=== PATIENT | male | born 1960 | race Caucasian/White ===

== ENCOUNTER → 2017-11-02 15:38 | Outpatient (CLI) | payer MEDICAID, SELFPAY ==
--- NOTE | 2017-11-02 15:53 | DI.REPORT_ITS ---
SYMPTOM/DIAGNOSIS: PAIN RIGHT KNEE: Three views. Comparison is made with 01/14/10. There is chondrocalcinosis present. Sridevi articular spurring is seen in the lateral femoral tibial joint space. The bones are intact and normally mineralized. The soft tissues are unremarkable. IMPRESSION: Mild degenerative changes of the knee.
== END ==
PROVIDERS: PCP General Practice; Visit Provider General Practice
DX: M25.561 Pain in right knee (principal); M17.11 Unilateral primary osteoarthritis, right knee
CPT/HCPCS: 73562

== ENCOUNTER 2019-02-21 15:20 | Outpatient (CLI) | payer MEDICAID, SELFPAY ==
--- NOTE | 2019-02-21 15:38 | DI.RAD_ITS ---
EXAM: XR SHOULDER RT COMPLETE 2+V INDICATION: PAIN X 2 WKS. COMPARISON: None TECHNIQUE: 2D digital imaging was performed. FINDINGS: There is deformity at the proximal aspect of the clavicle likely an old healed fracture. There is mi ld spurring at the AC joint and undersurface of the acromion. The humeral head appears normally posi tioned. The glenohumeral joint space is well maintained. There is mild spurring at the glenoid. No tendon or joint space calcifications are seen. IMPRESSION: Mild degenerative changes.
== END 2019-02-21 15:40 ==
PROVIDERS: PCP General Practice; Visit Provider General Practice
DX: M25.511 Pain in right shoulder (principal); M19.011 Primary osteoarthritis, right shoulder; Z87.81 Personal history of (healed) traumatic fracture
CPT/HCPCS: 73030

== ENCOUNTER 2019-03-30 01:26 | Outpatient (CLI) | payer MEDICAID, SELFPAY ==
--- NOTE | 2019-03-30 14:02 | DI.MRI_ITS ---
EXAM: MR UPPER JOINT RT WO CLINICAL HISTORY: Right shoulder weakness and pain evaluate rotator cuff and biceps,M75.101,ROTATOR CUFF TEAR, M75.51, BURSITIS TECHNIQUE: Multiplanar multisequence MRI was performed. COMPARISON: XR SHOULDER RT COMPLETE 2+V from 02/21/2019 FINDINGS: Supraspinatus tendon: There is a moderate size, full-thickness tear of the supraspinatus tendon anter iorly at its insertion onto the greater tuberosity. There is tendinosis of the supraspinatus tendon also noted. Infraspinatus tendon: Intact. Teres minor tendon: Intact. Subscapularis tendon: Mild thickening and intermediate signal is noted consistent with tendinosis. Biceps tendon: Intermediate signal is seen in the biceps tendon proximally suggesting tendinosis. Glenoid labrum: Unremarkable on this noncontrast examination. Glenohumeral joint: Articular cartilage is unremarkable. Bones: Degenerative changes are seen at the acromioclavicular joint. No evidence of an occult fractu re or avascular necrosis. Soft tissues: Fluid is seen in the subacromial, subdeltoid and subcoracoid bursa. There is a joint e ffusion. No soft tissue suha is appreciated. Coracoclavicular ligament: Intact. IMPRESSION: Moderate-sized, full-thickness tear of the supraspinatus tendon. Tendinosis of the subscapularis and biceps tendon Degenerative changes at the acromioclavicular joint.
== END 2019-03-30 01:46 ==
PROVIDERS: PCP General Practice; Visit Provider Student in an Organized Health Care Education/Training Program
DX: M25.511 Pain in right shoulder (principal); M75.101 Unspecified rotator cuff tear or rupture of right shoulder, not specified as traumatic; M75.21 Bicipital tendinitis, right shoulder; M75.51 Bursitis of right shoulder; M75.41 Impingement syndrome of right shoulder; M19.011 Primary osteoarthritis, right shoulder
CPT/HCPCS: 73221

== ENCOUNTER 2019-04-21 11:13 | Day surgery (SDC) | payer MEDICAID, SELFPAY ==
[2019-04-21 11:29] VITALS: BP 144/107; PULSE 72; RESP 16; TEMP 37.1; O2SAT 96
[2019-04-21] MEDS: Lactated Ringers 1,000 ML 100 ML IV (12:09)
[2019-04-21] MEDS: CLINDAMYCIN 900 MG/50 ML BAG 50 MG IVPB (12:45)
[2019-04-21] MEDS: Bupivacaine 0.25% Pres-Free 30 ML VIAL (14:00)
[2019-04-21] MEDS: EPINEPHrine 30 MG/30 ML VIAL (15:06)
[2019-04-21 15:51] VITALS: BP 125/71; PULSE 87; RESP 16; TEMP 37.1; O2SAT 97
--- NOTE | 2019-04-21 15:54 | PDOC.DSDIS_ITS ---
Discharge Plan Disposition Patient Disposition: HOME Condition: Stable Discharge Details Reason For Visit: Right shoulder surgery Attending Provider: Nils Barber Primary Care Provider: None,None Home Meds and New Rx's Prescriptions: New naproxen 250 mg tablet 250 - 500 mg PO BID PRN (Reason: pain, moderate) Qty: 60 RF: 0 aspirin 81 mg tablet,delayed release (DR/EC) 81 mg PO DAILY 14 Days Qty: 14 RF: 0 oxycodone 5 mg tablet 5 - 10 mg PO Q4H PRN (Reason: moderate to severe pain) Qty: 22 RF: 0 Continued acetaminophen [Acetaminophen Extra Strength] 500 mg Tablet 1,000 mg PO PRN PRNRF: 0 Excedrin Extra Strength 250-250-65 mg Tablet 1 tab PO ONCE RF: 0 Discontinued No RX or OTC meds RF: 0 ibuprofen 200 mg Tablet 600 mg PO PRN PRNRF: 0 Discharge Instructions Additional Instructions: Surgery: Shoulder arthroscopy with rotator cuff repair and biceps tenodesis Activity: You should keep your arm at your side in a neutral position at all times except for physical therapy. Do not try to lift or raise your arm using your own muscles. You should use the sling whenever you are out of the house. You may have to adjust the abduction pillow or remove it for comfort. At home it is best to remove the sling and rest the arm on a pillow at your side or support the operative side with your other hand. You may allow the arm to dangle at your side. A physical therapy prescription will be provided separately today. Prescriptions: Aspirin 81 mg take 1 daily to prevent a blood clot for 2 weeks Naproxen 250 mg take 1-2 every 12 hours with a meal as needed for moderate pain Oxycodone 5 mg take 1-2 every 4-6 hours as needed for severe pain You may use uabo-zor-hihdafe Tylenol (acetaminophen) as needed for mild pain. These pain medications may be taken all at once or in different combinations as needed. Also, recommend Colace (docusate) as a stool softener as surgery and pain medicine cause constipation. Dressings: Leave dressing in place for 2-3 days. May then remove and leave open to air or cover incisions with Band-Aids. May shower after 5 days. Follow-up: 10-[address] Barber Please call the office during business hours with any questions or concerns. Let us know right away if you develop any redness, drainage, fevers, chest pain, or trouble breathing. Do not drink alcohol or drive for at least 24 hours after anesthesia. Referrals: Nils Barber MD [ [facility] STAFF PHYSICIAN] - Discharge Orders Discharge Orders: Discharge Order (Routine); Ordered 04/21/19 Ordered By: Nils Barber DS: Diagnosis Discharge Diagnosis (1) Bursitis of right shoulder: Status: Acute (2) Impingement syndrome of right shoulder: Status: Acute (3) Rotator cuff tear, right: Status: Acute (4) Tendonitis of long head of biceps brachii of right shoulder: Status: Acute
[2019-04-21 16:00] VITALS: BP 132/82; PULSE 88; RESP 23; TEMP 37.1; O2SAT 96
[2019-04-21 16:05] VITALS: BP 109/61; PULSE 84; RESP 17; TEMP 37.1; O2SAT 97
--- NOTE | 2019-04-21 16:14 | W.PM.OP ---
Date of service: 04/21/19 Time of Service: 15:55 Operative Note Operative Note DATE OF PROCEDURE: 04/21/19 PRE-OP DIAGNOSIS: Right: 1. Rotator cuff tear 2. LHB tendinopathy 3. Bursitis 4. Impingement POST-OP DIAGNOSIS: same PROCEDURE: Right: 1. Extensive debridement, CPT# 29370. This involved using arthroscopic hand instruments, power instruments, and radiofrequency instruments to debride areas of labral tearing, synovitis, and chondromalacia within the glenohumeral joint anteriorly and posteriorly. 2. Open biceps tenodesis, CPT# 03243. This involved reattaching the long head of the biceps tendon to the proximal humerus in the sub-pectoral area of the bicipital groove at the correct tension. 3. Subacromial decompression with partial acromioplasty, CPT# 01664. This involved using arthroscopic power instruments and a radiofrequency wand to complete a bursectomy and remove bone spurs on the undersurface of the acromion. 4. Rotator cuff repair, CPT# 27433. This involved repair of the supraspinatus using anchors and sutures to reattach the rotator cuff back to the footprint of the greater tuberosity. The environmental services assistant was medically required in order to help assist in techniques above, which require positioning the arm, holding the arthroscope, and manipulating 2 to 4 instruments and sutures at the same time. This cannot be done without the help of an experienced environmental services assistant. SURGEON: Nils Barber FOOD SERVICES DIRECTOR: Mary Jo Stanton ANESTHESIA: GETA and regional PATHOLOGY: none sent Patient was transported to: PACU Patient's condition: stable Implants: Arthrex: 4.75mm SwiveLocks x 5 and Unicortical Proximal Biceps Tenodesis Button Indications: The patient was diagnosed with the above conditions and appropriately indicated for surgical intervention. Please see complete medical record for details. Findings: Exam under anesthesia: 15 degrees less terminal forward flexion on the right side that was nearly symmetrical after gentle manipulation. Otherwise, symmetric internal rotation, external rotation, and stable shoulder. Glenohumeral joint: Significant synovitis anteriorly and posteriorly. Mild chondromalacia about a swollen and inflamed long head of the biceps tendon. Mild anterior and superior labral fraying. Intact subscapularis. Subacromial space: Significant bursitis. Moderate subacromial bone spur. Full-thickness supraspinatus tear. Procedure Description: The patient was taken to the operating room and transferred to the operating room table. General anesthesia was induced. While under anesthesia, bilateral shoulders were examined. The patient was positioned in the beachchair position. All bony prominences were well-padded. Preoperative antibiotics were administered. The shoulder was prepped and draped in the usual sterile fashion. The correct patient, procedure, and side of the procedure were all verified prior to incision. Starting through the posterior portal a standard complete diagnostic arthroscopy was performed of the glenohumeral joint including inspection of the long head of the biceps, anterior and superior labrum, subscapularis tendon, supraspinatus and infraspinatus tendons, and axillary recess. The glenoid and humeral head cartilage as well as the posterior labrum were inspected from an anterior viewing portal. Significant findings noted above. The biceps tendon was tenotomized from the labrum using arthroscopic scissors. 10 cc of 0.5% bupivacaine with epinephrine was infiltrated about a 2 to 3 cm longitudinal incision at the inferior margin of the pectoralis major localized over the long head of the biceps tendon. Blunt and sharp dissection were used to expose the tendon in the bicipital groove. The tendon was brought out of the wound and kept off the skin on top of a blue towel. The correct location for sub-pectoral fixation was localized, prepped with a rasp, and then drilled with a 3.2 mm drill pin in a unicortical fashion. Using a fiber loop suture the tendon was prepped from the musculotendinous junction a few centimeters proximal. The excess tendon was amputated. The free suture ends were then passed through the unicortical button implant. The drill pin was removed and the implant was placed into the humeral intramedullary canal. The button was flipped and the sutures were tensioned bringing the tendon down to bone. Tension and fixation were then tested and found to be appropriate. A free needle was used to pass suture through the tendon and tied and the sutures were tied on top of the tendon. The wound was copiously irrigated with normal saline. Subcutaneous tissue was closed using 3-0 Monocryl in a buried interrupted fashion. Skin was closed using 3-0 Monocryl in a buried subcuticular running fashion. Skin glue was applied over the incision. Mastisol was applied about the incision. The incision was covered with Telfa, gauze, and covered with a Tegaderm dressing. Starting through the posterior portal, the arthroscope was directed into the subacromial space. A lateral 50 yard line lateral portal was created. A combination of power instruments and a radiofrequency ablator were used to debride bursitis anteriorly, posteriorly, and laterally as well as expose and smooth bone spurring on the undersurface of the acromion. The coracoacromial ligament was partially released. The bursectomy was completed viewing laterally and working from posteriorly and the rotator cuff was thoroughly inspected with findings noted above. Cannulas were inserted at the superior anterior lateral and posterior anterior lateral margins of the acromion as well as at the lateral 50 yard line portal. The rotator cuff tear was inspected and debrided of frayed tissue at the margins exposing a full-thickness moderately sized supraspinatus tear. The greater tuberosity cleared of fibrous tissue over the footprint and the bursectomy was extended laterally. A punch was used to localize placement the first medial row anchor starting anteriorly that was loaded with fiber tape. A suture passer was as well as a tissue grasper to pass these fiber tapes through all layers of the tendon at the appropriate level. Process was repeated for the second posterior medial row anchor. Next, a self retrieving suture passer was used to pass fiber link sutures in cinch mode anterior to the first medial row anchor, between the anchors, and posterior to the second medial row anchor. Rotator cuff tear was provisionally reduced through these FiberLink sutures and secured to a middle row suture anchor. Lastly, a fiber link from the anterior and posterior anchors was brought to a lateral row anterior anchor and this process repeated for lateral posterior anchor achieving compression over the reduced rotator cuff repair. The repair was inspected through shoulder range of motion and found to be stable with secure fixation. The shoulder was drained of arthroscopic fluid. All portal sites were copiously irrigated. These incisions were closed using 3-0 Monocryl in a buried fashion, covered with Mastisol, Steri-Strips, Xeroform, dry gauze, and ABDs. The dressings were covered and secured with Medipore tape. The operative extremity was placed into a sling for immobilization. The patient awoke from anesthesia without complication and was transferred to the recovery room in a stable condition.
[2019-04-21 16:20] VITALS: BP 112/68; PULSE 85; RESP 19; TEMP 36.7; O2SAT 98
[2019-04-21 17:44] VITALS: BP 121/78; PULSE 89; RESP 17; TEMP 36.4; O2SAT 94
== END 2019-04-21 17:50 | disposition home or self-care (01) ==
PROVIDERS: Visit Provider Student in an Organized Health Care Education/Training Program
PROC: (CPT 29827; principal; 2019-04-21 13:00)
PROC: (CPT 23430; 2019-04-21 13:00)
DX: S46.011A Strain of muscle(s) and tendon(s) of the rotator cuff of right shoulder, initial encounter (principal); S43.431A Superior glenoid labrum lesion of right shoulder, initial encounter; M65.811 Other synovitis and tenosynovitis, right shoulder; M94.211 Chondromalacia, right shoulder; M75.51 Bursitis of right shoulder; G89.18 Other acute postprocedural pain; X58.XXXA Exposure to other specified factors, initial encounter; Y99.0 Civilian activity done for income or pay
CPT/HCPCS: 29827; 29823; 23430; 29826; L3670; J1100; J1885; J2001; J2250; J2370; J2405; J2704

== ENCOUNTER 2021-05-09 10:47 | Emergency (ER) | payer MEDICAID, SELFPAY ==
[2021-05-09 10:51] VITALS: BP 177/108; PULSE 77; RESP 18; O2SAT 97
--- NOTE | 2021-05-09 11:00 | DI.RAD_ITS ---
Exam(s) XR KNEE LT 3V AP,LAT,NESSA EXAM: XR KNEE LT 3V AP,LAT,NESSA CLINICAL HISTORY: lateral knee trauma/pain. TECHNIQUE: 2D digital imaging was performed. COMPARISON: CR RIGHT KNEE COMPLETE from 01/14/2010 CR RIGHT KNEE 3 VIEWS from 11/02/2017 FINDINGS: Intramedullary sarai distal femur. No acute fracture. No joint effusion visible. Mild degenerative c hanges. IMPRESSION: No acute abnormality. DATA REPOSITORY: RADIATION DOSE DELIVERED:
--- NOTE | 2021-05-09 11:32 | ED.GENADUL_ITS ---
Discharge Plan Disposition Patient Disposition: HOME Condition: Stable Discharge Details Clinical Impression: Left knee sprain Primary Care Provider: None,None ED Provider: Efrem Balderas Home Meds and New Rx's Prescriptions: Continued acetaminophen [Acetaminophen Extra Strength] 500 mg Tablet 1,000 mg PO PRN PRN0RF Excedrin Extra Strength 250-250-65 mg Tablet 1 tab PO ONCE 0RF naproxen 250 mg tablet 250 - 500 mg PO BID PRN (Reason: pain, moderate) Qty: 60 0RF Discharge Instructions Instructions: Knee Sprain (ED) Additional Instructions: You may continue to take [id number] acetaminophen or naproxen as needed for pain and discomfort. Please use the crutches over the next 3 to 4 days and slowly advance your activity as tolerated. It is recommended that you wear the knee brace for the next 1 to 2 weeks but you may take this off in the evenings or when at rest. You have been placed upon the orthopedic follow-up list for reassessment but feel free to return to the emergency department for any new or significant worsening symptoms. Referrals: [facility] [Provider Group] (As directed by their office. If you do not hear from them in the next 2 to 3 days please call them for arrangement of appointment.) Medical Decision Making Patient presenting to the emergency department with chief complaint of left knee injury. He states that 60 pound dog was running at full speed and knocked him in the lateral aspect of the left knee causing instant pain and feeling of a popping sensation at time of injury. Patient has been unable to bear weight and extremely painful range of motion of left knee. Patient is able to fully extend and flex the knee and physical exam shows slight swelling and tenderness to lateral knee. Patient does have lateral discomfort with valgus testing otherwise unremarkable nondiagnostic exam. Suspect lateral knee sprain versus meniscus injury but given that patient is unable to bear weight will perform radiological imaging to rule out acute fracture. Patient took pain medication prior to arrival and states no need for further medication at this time. No acute findings noted on x-ray. Patient placed in a hinged knee brace and encouraged to perform conservative management with RICE and crutch use for the next couple days and then to increase use as tolerated. Given patient previous trauma to that extremity along with his pain will place patient on orthopedic follow-up list for reassessment and to ensure that he has appropriate improvement. Imaging Data Radiologic Study: Imaging: X-Ray Radiologist's impression: IMPRESSION: No acute abnormality HPI General Mode of arrival: ambulatory (On crutches) . Date/Time Provider Initiated Documentation: 05/09/21 10:59 . Limitations to Documentation: no limitations . Information obtained by: patient . History of Present Illness 60 year old M presents to the emergency department with the chief complaint of Left knee injury, described as moderate, with intensity rated at 8. Quality is described as aching and sharp, and is localized to the left and lower extremity. Patient reports no radiation. Patient started experiencing this hour(s) (2) and it has been constant. improves with Immobilization improves symptom(s), and Rest improves symptom(s), Movement worsens symptoms . Patient notes no other symptoms.. Patient did receive the following treatments prior to arrival, NSAID Related Data Home Medications Medication Instructions Recorded Confirmed acetaminophen 500 mg tablet 1,000 mg PO PRN PRN 04/18/19 05/09/21 (Acetaminophen Extra Strength) elgrpyj-aphpmaphusunk-ihzkawep 250 1 tab PO ONCE 04/21/19 05/09/21 mg-250 mg-65 mg tablet (Excedrin Extra Strength) naproxen 250 mg tablet 250 - 500 mg PO BID PRN #60 tab 04/21/19 05/09/21 Previous Rx's Medication Instructions Recorded naproxen 250 mg tablet 250 - 500 mg PO BID PRN #60 tab 04/21/19 Allergies Allergy/AdvReac Type Severity Reaction Status Date / Time Penicillins Allergy resp Verified 05/09/21 10:55 distress, facial swelling General Stated Complaint: Orthopedic HEBERT: 4 Review of Systems Cardiovascular Cardiovascular: Denies chest pain, Denies syncope and Denies dyspnea Respiratory Respiratory: Denies dyspnea Musculoskeletal Musculoskeletal: Reports as per HPI, Denies numbness and Denies tingling Integumentary/Breasts Skin/Breast: Denies rash, Denies sores and Denies wounds Neurologic Neurologic: Denies syncope, Denies numbness, Denies tingling and Reports paresthesias PFSH All Active Problems (Updated 05/09/21 @ 11:45 by Efrem Balderas NP) Left knee sprain (Acute) Umbilical hernia (Acute 06/28/14) Medical History (Updated 05/09/21 @ 11:45 by Efrem Balderas NP) Accident Cracked skull, fractured lumber spine, left femur, right shoulder and clavicle. Clavicle fracture, shaft Closed fracture skull vault with laceration and contusion-no coma Concussion Femur fracture Laceration of left buttock Patella fracture Shoulder fracture, right Surgical History femur nail H/O umbilical hernia repair Hx of arthroscopic knee surgery Pt unsure which side Social History Smoking/Tobacco Use Status: Never Smoking risk assessment performed?: Yes Alcohol Intake: current Alcohol Intake frequency: holidays/special occasions only Alcohol type: beer Drug use: Never Substance use type: does not use Current gender identity: male Do you feel safe at home: Yes Do you feel safe in your relationship?: Yes Additional Social history: not in current reationship Exam Const General: cooperative, no acute distress and not ill appearing Orientation: alert, awake and oriented x3 Resp Effort & Inspection: normal respiratory effort, able to speak in complete sentences and no respiratory distress Cardio Rate: regular rate Rhythm: regular rhythm Pulses: posterior tibial pulses present and dorsalis pedis present Skin General skin exam: no rashes or lesions noted Neuro General: patient alert, patient awake, patient oriented x3 and moves all extremities Extrem General: capillary refill normal and normal exam except as noted Left lower extremity: knee Details: tenderness Location: of the lateral joint line, swelling Location: of the distal upper leg Details: laterally, abnormal ROM Details: pain with active ROM Details: with extension and pain with passive ROM Details: with extension; Negative for able to extend lower leg actively and knee ligament exam abnormal Details: valgus stress test Details: pain noted; Negative for no abrasions, no lacerations, no ecchymosis and no deformity Course Vital Signs Vital signs: Vital Signs Pulse 77 05/09/21 10:51 Respiratory Rate 18 05/09/21 10:51 Blood Pressure 177/108 H 05/09/21 10:51 Pulse Oximetry 97 05/09/21 10:51 Pulse 77 05/09/21 10:51 Respiratory Rate 18 05/09/21 10:51 Respiratory Effort Non-Labored 05/09/21 10:56 Blood Pressure 177/108 H 05/09/21 10:51 Blood Pressure Position Sitting 05/09/21 10:51 Pulse Oximetry 97 05/09/21 10:51 Oxygen Delivery Method Room Air 05/09/21 10:51 Oxygen Flow Rate 0 05/09/21 10:51 Pain Level 8 05/09/21 10:58
== END 2021-05-09 12:11 | disposition home or self-care (01) ==
PROVIDERS: Emergency Provider Nurse Practitioner Family
DX: S83.8X2A Sprain of other specified parts of left knee, initial encounter (principal); W54.1XXA Struck by dog, initial encounter
CPT/HCPCS: 29505; 73562; 99283

== ENCOUNTER 2021-05-24 00:21 | Outpatient (CLI) | payer MEDICAID, SELFPAY ==
--- NOTE | 2021-05-24 06:15 | DI.MRI_ITS ---
Exam(s) MR LOWER JOINT LT WO EXAM: MR LOWER JOINT LT WO CLINICAL HISTORY: PAIN,lt knee sprain,acute traumatic internal derangement,s83.105a,s83.92xa TECHNIQUE: Multiplanar multisequence MRI was performed.. COMPARISON: No exams were available for comparison FINDINGS: MR examination of the knee was performed according to the usual protocol. There is a small knee joint effusion. There is an intramedullary sarai of the femur. 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 No other significant bony signal abnormality seen.. Medial tibiofemoral joint: The articular cartilage of the femur and tibia appears well maintained exc ept at femoral trochlea as noted above.. The meniscus and attachments appear intact. The medial col lateral ligament appears intact. No posteromedial corner injury seen. Lateral tibiofemoral joint: The articular cartilage of the femur and tibia appears well maintained. There is tear of the lateral meniscus which involves the body and posterior horn and extends into the anterior horn which is probably nondisplaced and complex in shape period. The lateral collateral li gament complex and posterolateral corner structures appear intact. There is a presumed small menisca l cyst projected posteriorly. Patellofemoral joint and extensor mechanism: The articular cartilage of the patellofemoral joint appe ars intact. The superior and inferior patellar fat pads show evidence of mild nonspecific edema. Th ere is increased signal anterior to the patellar tendon with mildly abnormal signal at the patellar t endon tibial attachment and a small fluid collection at the attachment as well. Please correlate for posttraumatic findings at this site.. The quadriceps tendon and patellar tendon appear intact with no evidence of a tear or significant jhonatan ma. The medial and lateral retinacula appear intact. Cruciate ligaments: Cruciate ligaments and attachments appear normal with no evidence of a tear. Tibiofibular joint: No specific abnormality involving the tibiofibular joint. Small fluid collection presumably represents a lateral meniscal cyst. IMPRESSION: Lateral meniscal tear, complex, nondisplaced. No other significant internal derangement. Additional minor findings as described above.. DATA REPOSITORY:
== END 2021-05-24 00:41 ==
PROVIDERS: Visit Provider Student in an Organized Health Care Education/Training Program
DX: M25.562 Pain in left knee; S83.272A Complex tear of lateral meniscus, current injury, left knee, initial encounter; M25.462 Effusion, left knee; M93.262 Osteochondritis dissecans, left knee; S83.8X2A Sprain of other specified parts of left knee, initial encounter
CPT/HCPCS: 73721